=== PATIENT | female | born 1995 | race Caucasian/White ===

== ENCOUNTER 2018-09-08 04:22 | Emergency (ER) | payer OTHER, SELFPAY ==
[2018-09-08 04:31] VITALS: BP 113/70; PULSE 98; RESP 14; TEMP 37.1; O2SAT 100; BMI 22.8
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
[2018-09-08] MEDS: KETOROLAC 60 MG/2 ML VIAL IM (05:10)
[2018-09-08 06:03] VITALS: BP 120/77; PULSE 71; RESP 14; O2SAT 99
== END 2018-09-08 06:05 | disposition home or self-care (01) ==
PROVIDERS: Emergency Provider Emergency Medicine
DX: G57.01 Lesion of sciatic nerve, right lower limb (principal)
CPT/HCPCS: 96372; 99282; 99283; J1885